=== PATIENT | male | born 1980 | race Caucasian/White ===

== ENCOUNTER 2018-03-22 06:15 | Day surgery (SDC) | payer OTHER ==
[2018-03-22] MEDS ORDERED: Sodium Chloride 0.9% 1,000 ML IV SCH (07:00)
[2018-03-22] MEDS ORDERED: fentaNYL 100 MCG/2 ML SDV ONE (07:34)
[2018-03-22] MEDS ORDERED: Propofol 200 MG/20 ML SDV ONE (07:34)
[2018-03-22] MEDS ORDERED: Midazolam 1 MG/ML 2 ML SDV ONE (07:34)
--- NOTE | 2018-03-23 08:41 | OR ---
DATE OF PROCEDURE: 03/22/2018 PROCEDURES: 1. Esophagogastroduodenoscopy. 2. Barragan pH monitor placement. COMPLICATIONS: None. PROCESS EQUIPMENT OPERATOR: None. FINDINGS: 1. Mild inflammation of the distal antrum, but not extending into the duodenum. 2. Hiatal hernia, moderate. 3. Barragan pH placement. RISKS: Risks, benefits, alternatives, and limitations including, but not limited to infection, bleeding, and perforation explained to the patient, who wished to proceed. PREOPERATIVE DIAGNOSIS: Epigastric pain. POSTOPERATIVE DIAGNOSIS: Epigastric pain. PROCEDURE IN DETAIL: The patient was placed in left lateral decubitus position. The EGD scope was introduced and advanced atraumatically into the second part of duodenum. No duodenal ulcers. Duodenum did not show any abnormalities. In the gastric antrum, there was mild inflammation consistent with gastritis. This was biopsied using cold biopsy forceps. On retroflex, the patient was noted to have a hiatal hernia. Within the stomach itself, there was no evidence of ulceration and no abnormality. GE junction showed inflammation consistent with reflux disease. The GE junction was then measured. The remainder of the esophagus was normal. The Barragan pH Monitor was then introduced as the scope was removed. This was placed 6 cm from the GE junction. This was performed in a standard technique by applying suction, waiting 30 seconds, deploying the device, releasing the suction, and removing the carrier. The scope was then reintroduced to inspect the area and the device was found to be clipped and packed without abnormality. The patient tolerated the procedure well. Alfredo Sin MD /[id number]
== END 2018-03-22 09:55 | disposition home or self-care (01) ==
LOC: JP.SDS 06:15
PROVIDERS: ATTEND Surgery
DX: K29.50 Unspecified chronic gastritis without bleeding (principal); K44.9 Diaphragmatic hernia without obstruction or gangrene
CPT/HCPCS: 43239; J2250; J2704; J3010; J7030; 88305

== ENCOUNTER 2018-03-24 16:05 | Observation (INO) | payer OTHER ==
--- NOTE | 2018-03-24 16:55 | EDM.PDOC ---
ED HPI GENERAL MEDICAL PROBLEM - General Chief Complaint: General Stated Complaint: CAME FROM CLINIC Time Seen by Provider: 03/24/18 16:56 Source of Information: Reports: Patient, Family History Limitations: Reports: No Limitations - History of Present Illness INITIAL COMMENTS - FREE TEXT/NARRATIVE: pt arrived with marked vertigo and feeling like he is going to fall. At times he doesn,t seem to coomprhend what is being said to him. He has had headaches but does not have a severe headache at this ttime. Onset: Other ( started last nite. ) Duration: Hour(s): Location: Reports: Head, Generalized Associated Symptoms: Reports: Confusion, Headaches, Other (nausea but no vomiting. ) - Related Data Allergies Allergy/AdvReac Type Severity Reaction Status Date / Time No Known Allergies Allergy Verified 03/22/18 07:05 Home Meds: Home Meds Fluticasone Propionate [Flonase] 2 spray NS DAILY 03/18/18 [History] Niacin 250 mg PO DAILY 03/18/18 [History] Aspirin [Halfprin] 81 mg PO DAILY 03/22/18 [History] Past Medical History Gastrointestinal History: Reports: Hemorrhoids, Other (See Below) Other Gastrointestinal History: calvo procedure on 03/22/18 Musculoskeletal History: Reports: Other (See Below) Other Musculoskeletal History: factial fx - Infectious Disease History Infectious Disease History: Reports: Chicken Pox - Past Surgical History HEENT Surgical History: Reports: Adenoidectomy, Tonsillectomy GI Surgical History: Reports: Appendectomy, Colonoscopy Social & Family History - Family History Family Medical History: Noncontributory - Tobacco Use Smoking Status *Q: Never Smoker - Caffeine Use Caffeine Use: Reports: Soda - Recreational Drug Use Recreational Drug Use: No ED ROS GENERAL - Review of Systems Review Of Systems: See Below Constitutional: Reports: Other (nausea) HEENT: Reports: Vertigo Respiratory: Reports: No Symptoms Cardiovascular: Reports: No Symptoms Endocrine: Reports: No Symptoms GI/Abdominal: Reports: Nausea : Reports: No Symptoms Musculoskeletal: Reports: No Symptoms Skin: Reports: No Symptoms Neurological: Reports: Confusion, Other (vertigo) Psychiatric: Reports: No Symptoms ED EXAM, GENERAL - Physical Exam Exam: See Below Free Text/Narrative:: pt arrived with a history of vertigo starting last nit. He is feeling very vague at times and not comprehending directions. He does not have a headache. Exam Limited By: No Limitations General Appearance: Alert, Moderate Distress, Other (pupils are equal and reactive. ) Ears: Normal TMs, Other (no nuchal rigidity. ) Throat/Mouth: Normal Inspection Head: Atraumatic Neck: Normal Inspection Respiratory/Chest: No Respiratory Distress Cardiovascular: Regular Rate, Rhythm GI/Abdominal: Soft, Non-Tender (Male) Exam: Deferred Rectal (Males) Exam: Deferred Back Exam: Normal Inspection Extremities: Normal Inspection Neurological: Alert, Oriented, Normal Cognition, Other (pt is somewhat vague looking at times. ) Course - Vital Signs Last Recorded V/S: Last Vital Signs Temp 35.4 C 03/24/18 16:17 Pulse 74 03/24/18 16:17 Resp 16 03/24/18 16:17 BP 132/85 03/24/18 16:17 Pulse Ox 96 03/24/18 16:17 - Orders/Labs/Meds Orders: Active Orders 24 hr Category Date Time Status Orthostatic Vital Signs [RC] ASDIRECTED Care 03/24/18 16:46 Active Chest 1V Frontal [CR] Stat Exams 03/24/18 17:44 Ordered Head wo Cont [CT] Stat Exams 03/24/18 16:58 Taken Sodium Chloride 0.9% [Normal Saline] 1,000 ml Med 03/24/18 18:00 Active IV ASDIRECTED Medication Orders Sodium Chloride (Normal Saline) 1,000 mls @ 300 mls/hr IV ASDIRECTED PREMA Last Admin: 03/24/18 18:01 Dose: 300 mls/hr Labs: Laboratory Tests 03/24/18 03/24/18 03/24/18 Range/Units 16:16 16:16 16:16 WBC 7.7 (4.5-11.0) K/uL RBC 4.61 (4.30-5.90) M/uL Hgb 14.3 (12.0-15.0) g/dL Hct 40.5 (40.0-54.0) % MCV 88 (80-98) fL MCH 31 (27-31) pg MCHC 35 (32-36) % Plt Count 270 (150-400) K/uL Neut % (Auto) 44 (36-66) % Lymph % (Auto) 42 (24-44) % [place] % (Auto) 7 H (2-6) % Eos % (Auto) 6 H (2-4) % Baso % (Auto) 1 (0-1) % Sodium 140 (140-148) mmol/L Potassium 3.8 (3.6-5.2) mmol/L Chloride 103 (100-108) mmol/L Carbon Dioxide 28 (21-32) mmol/L Anion Gap 12.8 (5.0-14.0) mmol/L BUN 17 (7-18) mg/dL Creatinine 1.4 H (0.8-1.3) mg/dL Est Cr Clr Drug Dosing 76.94 mL/min Estimated GFR (MDRD) 57 L (>60) Glucose 128 H (74-106) mg/dL Calcium 7.8 L (8.5-10.1) mg/dL Total Bilirubin 0.4 (0.2-1.0) mg/dL AST 18 (15-37) U/L ALT 33 (12-78) U/L Alkaline Phosphatase 61 (46-116) U/L C-Reactive Protein 0.10 (0.0-0.3) mg/dL Total Protein 7.3 (6.4-8.2) g/dL Albumin 3.7 (3.4-5.0) g/dL Globulin 3.6 H (2.3-3.5) g/dL Albumin/Globulin Ratio 1.0 L (1.2-2.2) Urine Color Urine Appearance Urine pH (4.5-8.0) Ur Specific [place] (1.008-1.030) Urine Protein (NEGATIVE) mg/dL Urine Glucose (UA) (NEGATIVE) mg/dL Urine Ketones (NEGATIVE) mg/dL Urine Occult Blood (NEGATIVE) Urine Nitrite (NEGAITVE) Urine Bilirubin (NEGATIVE) Urine Urobilinogen (NORMAL) mg/dL Ur Leukocyte Esterase (NEGATIVE) Urine RBC (0-5) Urine WBC (0-5) Ur Epithelial Cells Amorphous Sediment Urine Bacteria Urine Mucus 03/24/18 Range/Units 17:14 WBC (4.5-11.0) K/uL RBC (4.30-5.90) M/uL Hgb (12.0-15.0) g/dL Hct (40.0-54.0) % MCV (80-98) fL MCH (27-31) pg MCHC (32-36) % Plt Count (150-400) K/uL Neut % (Auto) (36-66) % Lymph % (Auto) (24-44) % [place] % (Auto) (2-6) % Eos % (Auto) (2-4) % Baso % (Auto) (0-1) % Sodium (140-148) mmol/L Potassium (3.6-5.2) mmol/L Chloride (100-108) mmol/L Carbon Dioxide (21-32) mmol/L Anion Gap (5.0-14.0) mmol/L BUN (7-18) mg/dL Creatinine (0.8-1.3) mg/dL Est Cr Clr Drug Dosing mL/min Estimated GFR (MDRD) (>60) Glucose (74-106) mg/dL Calcium (8.5-10.1) mg/dL Total Bilirubin (0.2-1.0) mg/dL AST (15-37) U/L ALT (12-78) U/L Alkaline Phosphatase (46-116) U/L C-Reactive Protein (0.0-0.3) mg/dL Total Protein (6.4-8.2) g/dL Albumin (3.4-5.0) g/dL Globulin (2.3-3.5) g/dL Albumin/Globulin Ratio (1.2-2.2) Urine Color Yellow Urine Appearance Clear Urine pH 7.0 (4.5-8.0) Ur Specific [place] 1.015 (1.008-1.030) Urine Protein Negative (NEGATIVE) mg/dL Urine Glucose (UA) Normal (NEGATIVE) mg/dL Urine Ketones Negative (NEGATIVE) mg/dL Urine Occult Blood Negative (NEGATIVE) Urine Nitrite Negative (NEGAITVE) Urine Bilirubin Negative (NEGATIVE) Urine Urobilinogen Normal (NORMAL) mg/dL Ur Leukocyte Esterase Negative (NEGATIVE) Urine RBC Not seen (0-5) Urine WBC Not seen (0-5) Ur Epithelial Cells Not seen Amorphous Sediment Not seen Urine Bacteria Rare Urine Mucus Not seen Meds: Medications Generic Name Dose Route Start Last Admin Trade Name Freq PRN Reason Stop Dose Admin Sodium Chloride 1,000 mls @ 300 mls/hr 03/24/18 18:00 03/24/18 18:01 Normal Saline IV 300 mls/hr ASDIRECTED PREMA Administration Discontinued Medications Generic Name Dose Route Start Last Admin Trade Name Red PRN Reason Stop Dose Admin Meclizine HCl 25 mg 03/24/18 17:46 03/24/18 18:01 Antivert PO 03/24/18 17:47 25 mg ONETIME ONE Administration Ondansetron HCl 4 mg 03/24/18 17:45 03/24/18 18:04 Zofran IVPUSH 03/24/18 17:46 4 mg ONETIME ONE Administration - Re-Assessments/Exams Free Text/Narrative Re-Assessment/Exam: 03/24/18 18:16 lab work was found to be normal. His cat scan of the head was normal. Departure - Departure Time of Disposition: 18:17 Disposition: Admitted As Inpatient 66 Condition: Fair Clinical Impression: Vertigo, Confusion - Discharge Information Referrals: Angus Roa, PHYSICAL DAMAGE APPRAISER [Primary Care Provider] - Forms: ED Department Discharge Care Plan Goals: admit to [facility] - My Orders Last 24 Hours: My Active Orders 03/24/18 16:46 Orthostatic Vital Signs [RC] ASDIRECTED 03/24/18 16:58 Head wo Cont [CT] Stat 03/24/18 17:44 Chest 1V Frontal [CR] Stat 03/24/18 18:00 Sodium Chloride 0.9% [Normal Saline] 1,000 ml IV ASDIRECTED - Assessment/Plan Last 24 Hours: My Active Orders 03/24/18 16:46 Orthostatic Vital Signs [RC] ASDIRECTED 03/24/18 16:58 Head wo Cont [CT] Stat 03/24/18 17:44 Chest 1V Frontal [CR] Stat 03/24/18 18:00 Sodium Chloride 0.9% [Normal Saline] 1,000 ml IV ASDIRECTED
[2018-03-24] MEDS ORDERED: Ondansetron 4 MG/2 ML SDV IVPUSH ONE (17:45)
[2018-03-24] MEDS ORDERED: Meclizine 25 MG Tab PO ONE (17:46)
[2018-03-24] MEDS ORDERED: Sodium Chloride 0.9% 1,000 ML IV SCH (18:00)
--- NOTE | 2018-03-24 20:07 | PCM.HP ---
H&P History of Present Illness - General Date of Service: 03/24/18 Admit Problem/Dx: Admission Diagnosis/Problem Admission Diagnosis/Problem Vertigo Source of Information: Patient, Family () History Limitations: Reports: No Limitations - History of Present Illness Initial Comments - Free Text/Narative: Angus reports he had a Calvo procedure for epigastric and GERD problems, surgery under general anesthesia on Wednesday, he was discharged to home. Wednesday he had a normal day but in the evening became mildly lightheaded which progressed into . 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 He became acutely dizzy, almost fell off ladder. His Boss brought him to his for evaluation. His is a nurse retail chain store area supervisor who was at her office at [facility]. His noted Angus was confused, not knowing who she was or names children. She brought Angus to emergency room for further evaluation. Onset of Symptoms: Reports: Sudden Duration of Symptoms: Reports: Day(s): Location: Reports: Generalized Severity: Severe Improves with: Reports: None Worsens with: Reports: None Associated Symptoms: Reports: Confusion, Headaches (Frontal), Nausea/Vomiting, Syncope (Near syncope) - Related Data Allergies/Adverse Reactions: Allergies Allergy/AdvReac Type Severity Reaction Status Date / Time No Known Allergies Allergy Verified 03/22/18 07:05 Home Medications: Home Meds Fluticasone Propionate [Flonase] 2 spray NS DAILY 03/18/18 [History] Niacin 250 mg PO DAILY 03/18/18 [History] Aspirin [Halfprin] 81 mg PO DAILY 03/22/18 [History] Past Medical History Gastrointestinal History: Reports: Hemorrhoids, Other (See Below) Other Gastrointestinal History: calvo procedure on 03/22/18 Musculoskeletal History: Reports: Other (See Below) Other Musculoskeletal History: factial fx - Infectious Disease History Infectious Disease History: Reports: Chicken Pox - Past Surgical History HEENT Surgical History: Reports: Adenoidectomy, Tonsillectomy GI Surgical History: Reports: Appendectomy, Colonoscopy Social & Family History - Family History Family Medical History: Noncontributory - Tobacco Use Smoking Status *Q: Never Smoker - Caffeine Use Caffeine Use: Reports: Soda - Recreational Drug Use Recreational Drug Use: No - Living Situation & Occupation Living situation: Reports: Occupation: Employed (With Emma and 3 children. 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.) H&P Review of Systems - Review of Systems: Review Of Systems: See Below (All) General: Reports: Fatigue HEENT: Reports: Headaches Pulmonary: Reports: No Symptoms Cardiovascular: Reports: No Symptoms Gastrointestinal: Reports: Nausea Genitourinary: Reports: No Symptoms Musculoskeletal: Reports: No Symptoms Skin: Reports: No Symptoms Psychiatric: Reports: No Symptoms Neurological: Reports: Confusion, Dizziness, Headache, Syncope (near), Difficulty Walking Hematologic/Lymphatic: Reports: No Symptoms Immunologic: Reports: Seasonal Allergy Exam - Exam Exam: See Below - Vital Signs Vital Signs: Last Vital Signs Temp 35.4 C 03/24/18 16: Pulse 74 03/24/18 16:17 Resp 16 03/24/18 16:17 BP 132/85 03/24/18 16:17 Pulse Ox 96 03/24/18 16:17 Orthostatic Blood Pressure [ 128/95 Standing] Orthostatic Blood Pressure [ 146/97 Sitting] Orthostatic Blood Pressure [ 131/88 Supine] Weight: 90.718 kg - Exam General: Alert, Oriented, Cooperative HEENT: PERRLA, Hearing Intact, Mucosa Moist & [place], Nares Patent, Normal Nasal Septum, Posterior Pharynx Clear, Conjunctiva Clear, EOMI, EACs Clear, TMs Clear Neck: Supple, Trachea Midline, 2 Lungs: Clear to Auscultation, Normal Respiratory Effort Cardiovascular: Regular Rate, Regular Rhythm, Normal S1 GI/Abdominal Exam: Normal Bowel Sounds, Soft, Non-Tender, No Organomegaly, No Distention, No Abnormal Bruit, No Mass, Pelvis Stable (Male) Exam: Deferred Rectal (Males) Exam: Deferred Back Exam: Normal Inspection, Full Range of Motion Extremities: Normal Inspection, Normal Range of Motion, Non-Tender, No Pedal Edema, Normal Capillary Refill Peripheral Pulses: 2+: Radial (L), Radial (R) Skin: Warm, Dry, Intact Neurological: Cranial Nerves Intact, Reflexes Equal Bilateral, Strength Equal Bilateral, Normal Speech, Normal Tone, Sensation Intact Neuro Extensive - Mental Status: Alert, Oriented x3, Normal Mood/Affect, Normal Cognition, Memory Intact Psychiatric: Alert, Normal Affect, Normal Mood - Patient Data Lab Results Last 24 hrs: Laboratory Results - last 24 hr 03/24/18 03/24/18 03/24/18 Range/Units 16:16 16:16 16:16 WBC 7.7 (4.5-11.0) K/uL RBC 4.61 (4.30-5.90) M/uL Hgb 14.3 (12.0-15.0) g/dL Hct 40.5 (40.0-54.0) % MCV 88 (80-98) fL MCH 31 (27-31) pg MCHC 35 (32-36) % Plt Count 270 (150-400) K/uL Neut % (Auto) 44 (36-66) % Lymph % (Auto) 42 (24-44) % [place] % (Auto) 7 H (2-6) % Eos % (Auto) 6 H (2-4) % Baso % (Auto) 1 (0-1) % Sodium 140 (140-148) mmol/L Potassium 3.8 (3.6-5.2) mmol/L Chloride 103 (100-108) mmol/L Carbon Dioxide 28 (21-32) mmol/L Anion Gap 12.8 (5.0-14.0) mmol/L BUN 17 (7-18) mg/dL Creatinine 1.4 H (0.8-1.3) mg/dL Est Cr Clr Drug Dosing 76.94 mL/min Estimated GFR (MDRD) 57 L (>60) Glucose 128 H (74-106) mg/dL Calcium 7.8 L (8.5-10.1) mg/dL Total Bilirubin 0.4 (0.2-1.0) mg/dL AST 18 (15-37) U/L ALT 33 (12-78) U/L Alkaline Phosphatase 61 (46-116) U/L C-Reactive Protein 0.10 (0.0-0.3) mg/dL Total Protein 7.3 (6.4-8.2) g/dL Albumin 3.7 (3.4-5.0) g/dL Globulin 3.6 H (2.3-3.5) g/dL Albumin/Globulin Ratio 1.0 L (1.2-2.2) Urine Color Urine Appearance Urine pH (4.5-8.0) Ur Specific [place] (1.008-1.030) Urine Protein (NEGATIVE) mg/dL Urine Glucose (UA) (NEGATIVE) mg/dL Urine Ketones (NEGATIVE) mg/dL Urine Occult Blood (NEGATIVE) Urine Nitrite (NEGAITVE) Urine Bilirubin (NEGATIVE) Urine Urobilinogen (NORMAL) mg/dL Ur Leukocyte Esterase (NEGATIVE) Urine RBC (0-5) Urine WBC (0-5) Ur Epithelial Cells Amorphous Sediment Urine Bacteria Urine Mucus Urine Opiates Screen (NEGATIVE) Ur Oxycodone Screen (NEGATIVE) Urine Methadone Screen (NEGATIVE) Ur Propoxyphene Screen (NEGATIVE) Ur Barbiturates Screen (NEGATIVE) Ur Tricyclics Screen (NEGATIVE) Ur Phencyclidine Scrn (NEGATIVE) Ur Amphetamine Screen (NEGATIVE) U Methamphetamines Scrn (NEGATIVE) Urine MDMA Screen (NEGATIVE) U Benzodiazepines Scrn (NEGATIVE) U Cocaine Metab Screen (NEGATIVE) U Marijuana (THC) Screen (NEGATIVE) 03/24/18 03/24/18 Range/Units 17:14 18:33 WBC (4.5-11.0) K/uL RBC (4.30-5.90) M/uL Hgb (12.0-15.0) g/dL Hct (40.0-54.0) % MCV (80-98) fL MCH (27-31) pg MCHC (32-36) % Plt Count (150-400) K/uL Neut % (Auto) (36-66) % Lymph % (Auto) (24-44) % [place] % (Auto) (2-6) % Eos % (Auto) (2-4) % Baso % (Auto) (0-1) % Sodium (140-148) mmol/L Potassium (3.6-5.2) mmol/L Chloride (100-108) mmol/L Carbon Dioxide (21-32) mmol/L Anion Gap (5.0-14.0) mmol/L BUN (7-18) mg/dL Creatinine (0.8-1.3) mg/dL Est Cr Clr Drug Dosing mL/min Estimated GFR (MDRD) (>60) Glucose (74-106) mg/dL Calcium (8.5-10.1) mg/dL Total Bilirubin (0.2-1.0) mg/dL AST (15-37) U/L ALT (12-78) U/L Alkaline Phosphatase (46-116) U/L C-Reactive Protein (0.0-0.3) mg/dL Total Protein (6.4-8.2) g/dL Albumin (3.4-5.0) g/dL Globulin (2.3-3.5) g/dL Albumin/Globulin Ratio (1.2-2.2) Urine Color Yellow Urine Appearance Clear Urine pH 7.0 (4.5-8.0) Ur Specific [place] 1.015 (1.008-1.030) Urine Protein Negative (NEGATIVE) mg/dL Urine Glucose (UA) Normal (NEGATIVE) mg/dL Urine Ketones Negative (NEGATIVE) mg/dL Urine Occult Blood Negative (NEGATIVE) Urine Nitrite Negative (NEGAITVE) Urine Bilirubin Negative (NEGATIVE) Urine Urobilinogen Normal (NORMAL) mg/dL Ur Leukocyte Esterase Negative (NEGATIVE) Urine RBC Not seen (0-5) Urine WBC Not seen (0-5) Ur Epithelial Cells Not seen Amorphous Sediment Not seen Urine Bacteria Rare Urine Mucus Not seen Urine Opiates Screen Negative (NEGATIVE) Ur Oxycodone Screen Negative (NEGATIVE) Urine Methadone Screen Negative (NEGATIVE) Ur Propoxyphene Screen Negative (NEGATIVE) Ur Barbiturates Screen Negative (NEGATIVE) Ur Tricyclics Screen Negative (NEGATIVE) Ur Phencyclidine Scrn Negative (NEGATIVE) Ur Amphetamine Screen Negative (NEGATIVE) U Methamphetamines Scrn Negative (NEGATIVE) Urine MDMA Screen Negative (NEGATIVE) U Benzodiazepines Scrn Negative (NEGATIVE) U Cocaine Metab Screen Negative (NEGATIVE) U Marijuana (THC) Screen Negative (NEGATIVE) Result Diagrams: 03/24/18 16:16 03/24/18 16:16 - Problem List (1) Confusion SNOMED Code(s): 160916702 ICD Code: R41.0 - DISORIENTATION, UNSPECIFIED Status: Acute Priority: High Current Visit: Yes (2) Vertigo SNOMED Code(s): 069947370 ICD Code: R42 - DIZZINESS AND GIDDINESS Status: Acute Priority: High Current Visit: Yes Problem List Initiated/Reviewed/Updated: Yes Orders Last 24hrs: Active Orders 24 hr Category Date Time Status Patient Status Manage Transfer [TRANSFER] Routine ADT 03/24/18 19:32 Ordered Orthostatic Vital Signs [RC] ASDIRECTED Care 03/24/18 16:46 Active Chest 1V Frontal [CR] Stat Exams 03/24/18 17:44 Taken Head wo Cont [CT] Stat Exams 03/24/18 16:58 Taken Sodium Chloride 0.9% [Normal Saline] 1,000 ml Med 03/24/18 18:00 Active IV ASDIRECTED Resuscitation Status Routine Resus Stat 03/24/18 19:32 Ordered Medication Orders Sodium Chloride (Normal Saline) 1,000 mls @ 300 mls/hr IV ASDIRECTED [facility] Last Admin: 03/24/18 18:01 Dose: 300 mls/hr Assessment/Plan Comment:: Assessment and plan Angus reports he had a Calvo procedure for epigastric and GERD problems, surgery under general anesthesia on Wednesday, he was discharged to home. Wednesday he had a normal day but in the evening became mildly lightheaded which progressed into . 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 He became acutely dizzy, almost fell off ladder. His Boss brought him to his for evaluation. His is a nurse retail chain store area supervisor who was at her office at [facility]. His noted Angus was confused, not knowing who she was or names children. She brought Angus to emergency room for further evaluation. Emergency room Head CT without contrast which was negative for any acute process , hemoglobin 14 3 hematocrit 40.5 platelets 270 WBC normal, chemistries sodium 140, potassium 3.8 chloride 103, 12.8, 17, creatinine 1.4, glucose, calcium 7.8 , urine normal, urine drug screen negative. Given IV fluids and anti-emetics which improved his symptoms. He is feeling much better. Due to the onset of neurological symptoms patient will admitted observation for further monitoring. Vertigo -Admit to [address] [place] [address] for further monitoring -IV Fluids for rehydration LR at 125 mL per hour -Anti-emetics -Neuro checks every 2 hours while awake -Advise to notify nurses of any chest pain or other symptoms -Repeat head CT with contrast 6am -And a.m. labs: CBC, CMP Maintenance issues -Orders home meds: ordered -Nutrition: regular diet -Noland catheter not indicated at this time -DVT: Contraindicated -PPI: IV Protonix 40mg daily CODE STATUS: FULL CODE Admission status: Admit to Observation -I expect this patient to stay less than 24 hours, not to exceed 96 hours for evaluation and management of this problem. Disposition: home with family Primary care provider:Angus Roa NP Hospitalist: Dr. Duke
[2018-03-24] MEDS ORDERED: Temazepam 15 MG Cap PO PRN (20:18)
[2018-03-24] MEDS ORDERED: Acetaminophen 325 MG Tab PO PRN (20:18)
[2018-03-24] MEDS ORDERED: Ondansetron 4 MG Tab.DIS PO PRN (20:18)
[2018-03-24] MEDS ORDERED: LORazepam 2 MG/ML SDV IV PRN (20:18)
[2018-03-24] MEDS ORDERED: Docusate Sodium 100 MG Cap PO PRN (20:18)
[2018-03-24] MEDS ORDERED: Pantoprazole 40 MG Vial IVPUSH SCH (20:18)
[2018-03-24] MEDS ORDERED: oxyCODONE 5 MG Tab PO PRN (20:18)
[2018-03-24] MEDS ORDERED: Albuterol 0.083% 2.5 MG/3 ML Neb Soln NEB PRN (20:18)
[2018-03-24] MEDS ORDERED: Morphine 2 MG/ML Syringe IVPUSH PRN (20:18)
[2018-03-24] MEDS: Lactated Ringers 1,000 ML IV SCH (21:16)
[2018-03-25] MEDS: Lactated Ringers 1,000 ML IV SCH (05:21)
[2018-03-25] MEDS ORDERED: Iopamidol 612 MG/ML 100 ML Bottle IV PRN (07:10)
[2018-03-25] MEDS: Fluticasone Propionate Nasal Spray 16 GM Bottle NAS SCH (08:02)
--- NOTE | 2018-03-25 08:44 | CR ---
CHEST: Portable CLINICAL HISTORY:GERD COMPARISON:None FINDINGS: Lung delgado are clear. Heart and pulmonary vascularity are normal.. Small radiopacity in t he mid mediastinum is likely an esophageal monitor device. Impression: No acute cardio pelvic process
[2018-03-25] MEDS: Aspirin 81 MG Tab.EC PO SCH (08:59)
[2018-03-25] MEDS: Pantoprazole 40 MG Tab.CR PO SCH ×2 (08:59→17:23)
[2018-03-25] MEDS ORDERED: Pantoprazole 40 MG Vial IVPUSH SCH (09:00)
--- NOTE | 2018-03-25 17:05 | PCM.PN ---
- General Info Date of Service: 03/25/18 Subjective Update: Mr. Russell is a 37-year-old gentleman who was admitted through the emergency department last night with severe vertigo, nausea vomiting, and confusion. He had an outpatient procedure done here 2 days prior to admission, he felt well the first day but on the day of admission developed symptoms of severe vertigo which seemed to be positional in nature associated with nausea vomiting as well as confusion and memory impairment. He was admitted and has received IV fluids, symptoms were significantly improved in the morning and have almost totally resolved now this afternoon. CT scan without contrast was obtained on admission and was unremarkable followed by CT scan with contrast this morning also felt to be unremarkable. He's never had similar symptoms in the past. Functional Status: Reports: Tolerating Diet, Ambulating, Urinating - Review of Systems General: Denies: Fever, Weakness, Chills Pulmonary: Reports: No Symptoms Cardiovascular: Reports: No Symptoms Gastrointestinal: Reports: No Symptoms Neurological: Reports: Confusion, Dizziness, Other (Vertigo). Denies: Headache , Numbness, Paresthesia, Pre-Existing Deficit, Seizure, Tremors - Patient Data Vitals - Most Recent: Last Vital Signs Temp 96.6 F 03/25/18 13:48 Pulse 100 03/25/18 13:48 Resp 16 03/25/18 13:48 BP 134/85 03/25/18 13:48 Pulse Ox 97 03/25/18 13:48 Orthostatic Blood Pressure [ 128/95 Standing] Orthostatic Blood Pressure [ 146/97 Sitting] Orthostatic Blood Pressure [ 131/88 Supine] Weight - Most Recent: 196 lb 6.416 oz I&O - Last 24 Hours: Intake & Output 03/25/18 03/25/18 03/25/18 06:59 14:59 22:59 Intake Total 1350 1580 Output Total 600 Balance 750 1580 Lab Results Last 24 Hours: Laboratory Results - last 24 hr 03/24/18 03/24/18 03/25/18 Range/Units 17:14 18:33 05:11 WBC 6.0 (4.5-11.0) K/uL RBC 4.49 (4.30-5.90) M/uL Hgb 13.8 (12.0-15.0) g/dL Hct 39.5 L (40.0-54.0) % MCV 88 (80-98) fL MCH 31 (27-31) pg MCHC 35 (32-36) % Plt Count 252 (150-400) K/uL Neut % (Auto) 42 (36-66) % Lymph % (Auto) 43 (24-44) % Amador % (Auto) 8 H (2-6) % Eos % (Auto) 7 H (2-4) % Baso % (Auto) 1 (0-1) % Sodium (140-148) mmol/L Potassium (3.6-5.2) mmol/L Chloride (100-108) mmol/L Carbon Dioxide (21-32) mmol/L Anion Gap (5.0-14.0) mmol/L BUN (7-18) mg/dL Creatinine (0.8-1.3) mg/dL Est Cr Clr Drug Dosing mL/min Estimated GFR (MDRD) (>60) Glucose (74-106) mg/dL Calcium (8.5-10.1) mg/dL Magnesium (1.8-2.4) mg/dL Total Bilirubin (0.2-1.0) mg/dL AST (15-37) U/L ALT (12-78) U/L Alkaline Phosphatase (46-116) U/L Total Protein (6.4-8.2) g/dL Albumin (3.4-5.0) g/dL Globulin (2.3-3.5) g/dL Albumin/Globulin Ratio (1.2-2.2) Urine Color Yellow Urine Appearance Clear Urine pH 7.0 (4.5-8.0) Ur Specific [place] 1.015 (1.008-1.030) Urine Protein Negative (NEGATIVE) mg/dL Urine Glucose (UA) Normal (NEGATIVE) mg/dL Urine Ketones Negative (NEGATIVE) mg/dL Urine Occult Blood Negative (NEGATIVE) Urine Nitrite Negative (NEGAITVE) Urine Bilirubin Negative (NEGATIVE) Urine Urobilinogen Normal (NORMAL) mg/dL Ur Leukocyte Esterase Negative (NEGATIVE) Urine RBC Not seen (0-5) Urine WBC Not seen (0-5) Ur Epithelial Cells Not seen Amorphous Sediment Not seen Urine Bacteria Rare Urine Mucus Not seen Urine Opiates Screen Negative (NEGATIVE) Ur Oxycodone Screen Negative (NEGATIVE) Urine Methadone Screen Negative (NEGATIVE) Ur Propoxyphene Screen Negative (NEGATIVE) Ur Barbiturates Screen Negative (NEGATIVE) Ur Tricyclics Screen Negative (NEGATIVE) Ur Phencyclidine Scrn Negative (NEGATIVE) Ur Amphetamine Screen Negative (NEGATIVE) U Methamphetamines Scrn Negative (NEGATIVE) Urine MDMA Screen Negative (NEGATIVE) U Benzodiazepines Scrn Negative (NEGATIVE) U Cocaine Metab Screen Negative (NEGATIVE) U Marijuana (THC) Screen Negative (NEGATIVE) 03/25/18 Range/Units 05:20 WBC (4.5-11.0) K/uL RBC (4.30-5.90) M/uL Hgb (12.0-15.0) g/dL Hct (40.0-54.0) % MCV (80-98) fL MCH (27-31) pg MCHC (32-36) % Plt Count (150-400) K/uL Neut % (Auto) (36-66) % Lymph % (Auto) (24-44) % Amador % (Auto) (2-6) % Eos % (Auto) (2-4) % Baso % (Auto) (0-1) % Sodium 142 (140-148) mmol/L Potassium 4.0 (3.6-5.2) mmol/L Chloride 107 (100-108) mmol/L Carbon Dioxide 26 (21-32) mmol/L Anion Gap 9.1 (5.0-14.0) mmol/L BUN 12 (7-18) mg/dL Creatinine 1.1 (0.8-1.3) mg/dL Est Cr Clr Drug Dosing 97.93 mL/min Estimated GFR (MDRD) > 60 (>60) Glucose 114 H (74-106) mg/dL Calcium 7.6 L (8.5-10.1) mg/dL Magnesium 1.8 (1.8-2.4) mg/dL Total Bilirubin 0.4 (0.2-1.0) mg/dL AST 16 (15-37) U/L ALT 29 (12-78) U/L Alkaline Phosphatase 52 (46-116) U/L Total Protein 6.5 (6.4-8.2) g/dL Albumin 3.3 L (3.4-5.0) g/dL Globulin 3.2 (2.3-3.5) g/dL Albumin/Globulin Ratio 1.0 L (1.2-2.2) Urine Color Urine Appearance Urine pH (4.5-8.0) Ur Specific [place] (1.008-1.030) Urine Protein (NEGATIVE) mg/dL Urine Glucose (UA) (NEGATIVE) mg/dL Urine Ketones (NEGATIVE) mg/dL Urine Occult Blood (NEGATIVE) Urine Nitrite (NEGAITVE) Urine Bilirubin (NEGATIVE) Urine Urobilinogen (NORMAL) mg/dL Ur Leukocyte Esterase (NEGATIVE) Urine RBC (0-5) Urine WBC (0-5) Ur Epithelial Cells Amorphous Sediment Urine Bacteria Urine Mucus Urine Opiates Screen (NEGATIVE) Ur Oxycodone Screen (NEGATIVE) Urine Methadone Screen (NEGATIVE) Ur Propoxyphene Screen (NEGATIVE) Ur Barbiturates Screen (NEGATIVE) Ur Tricyclics Screen (NEGATIVE) Ur Phencyclidine Scrn (NEGATIVE) Ur Amphetamine Screen (NEGATIVE) U Methamphetamines Scrn (NEGATIVE) Urine MDMA Screen (NEGATIVE) U Benzodiazepines Scrn (NEGATIVE) U Cocaine Metab Screen (NEGATIVE) U Marijuana (THC) Screen (NEGATIVE) Med Orders - Current: Current Medications Acetaminophen (Tylenol) 650 mg PO Q4H PRN PRN Reason: Pain (Mild 1-3)/fever Albuterol (Proventil Neb Soln) 2.5 mg NEB Q4H PRN PRN Reason: Shortness Of Breath/wheezing Aspirin (Halfprin) 81 mg PO DAILY [facility] Last Admin: 03/25/18 08:59 Dose: 81 mg Docusate Sodium (Colace) 100 mg PO BID PRN PRN Reason: Constipation Fluticasone Propionate (Flonase) 0 gm KEN DAILY [facility] Last Admin: 03/25/18 08:02 Dose: Not Given Ondansetron HCl (Zofran Odt) 4 mg PO Q6H PRN PRN Reason: Nausea able to take PO Oxycodone HCl (Oxycodone) 5 mg PO Q4H PRN PRN Reason: Pain (moderate 4-6) Pantoprazole Sodium (Protonix) 40 mg PO BIDAC [facility] Last Admin: 03/25/18 08:59 Dose: 40 mg Temazepam (Restoril) 15 mg PO BEDTIME PRN PRN Reason: Sleep Discontinued Medications Sodium Chloride (Normal Saline) 1,000 mls @ 300 mls/hr IV ASDIRECTED [facility] Last Admin: 03/24/18 18:01 Dose: 300 mls/hr Lactated Ringer's (Ringers, Lactated) 1,000 mls @ 125 mls/hr IV ASDIRECTED [facility] Last Admin: 03/25/18 05:21 Dose: 125 mls/hr Iopamidol (Isovue-300 (61%)) 100 ml IV . DIRECTED PRN PRN Reason: RADIOLOGY EXAM Stop: 03/26/18 07:11 Last Admin: 03/25/18 07:29 Dose: 100 ml Lorazepam (Ativan) 1 mg IV Q6H PRN PRN Reason: Nausea/Vomiting Meclizine HCl (Antivert) 25 mg PO ONETIME ONE Stop: 03/24/18 17:47 Last Admin: 03/24/18 18:01 Dose: 25 mg Morphine Sulfate (Morphine) 2 mg IVPUSH Q2H PRN PRN Reason: Pain (severe 7-10) Ondansetron HCl (Zofran) 4 mg IVPUSH ONETIME ONE Stop: 03/24/18 17:46 Last Admin: 03/24/18 18:04 Dose: 4 mg Pantoprazole Sodium (Protonix Iv) 40 mg IVPUSH Q12H [facility] Last Admin: 03/24/18 21:09 Dose: 40 mg Pantoprazole Sodium (Protonix Iv) 40 mg IVPUSH Q12H [facility] - Exam General: Alert, Oriented, Cooperative, No Acute Distress HEENT: Pupils Equal, Pupils Reactive, Other (Hallpike maneuvers were found to be positive on the right) Lungs: Clear to Auscultation, Normal Respiratory Effort Cardiovascular: Regular Rate, Regular Rhythm, No Murmurs GI/Abdominal Exam: Soft, Non-Tender, No Organomegaly, No Distention Neurological: No New Focal Deficit - Problem List Review Problem List Initiated/Reviewed/Updated: Yes - My Orders Last 24 Hours: My Active Orders 03/25/18 11:48 Consult to Occupational Therapy [OT Evaluation and Treatment] [CONS] Routine 03/25/18 16:57 Discontinue Telemetry Monitoring [Cardiac Monitoring Discontinue] [RC] Click to Edit 03/25/18 16:58 Convert IV to Saline Lock [OM.PC] Routine 03/26/18 05:00 Chest 1V Frontal [CR] Timed 03/26/18 Breakfast NPO After Midnight [Nothing per Oral After Midnight Diet] [DIET] - Plan Plan:: Assessment and plan Benign positional Vertigo-associated with symptoms of confusion, nausea and vomiting, and significant confusion with memory impairment.. Significantly improved this morning and symptoms have almost totally resolved this afternoon. CT scan obtained with and without contrast shows no significant abnormalities. -Saline lock IV -Anti-emetics -Neuro checks every 2 hours while awake Maintenance issues -Orders home meds: ordered -Nutrition: regular diet -Noland catheter not indicated at this time -DVT: Contraindicated -PPI: IV Protonix 40mg daily CODE STATUS: FULL CODE Admission status: Admit to Observation -I expect this patient to stay less than 24 hours, not to exceed 96 hours for evaluation and management of this problem. Disposition: home with family Primary care provider:Angus Roa NP Hospitalist: Dr. Duke
[2018-03-26] MEDS: Pantoprazole 40 MG Tab.CR PO SCH (07:52)
[2018-03-26] MEDS: Aspirin 81 MG Tab.EC PO SCH (08:35)
[2018-03-26] MEDS: Fluticasone Propionate Nasal Spray 16 GM Bottle NAS SCH (08:47)
[2018-03-26] MEDS ORDERED: fentaNYL 100 MCG/2 ML SDV ONE (11:48)
[2018-03-26] MEDS ORDERED: Propofol 200 MG/20 ML SDV ONE (11:48)
--- NOTE | 2018-03-26 14:13 | PCM.DCSUM1 ---
Discharge Summary - Hospital Course Brief History: Mr. Russell is a 37-year-old gentleman who is admitted through the emergency department for further evaluation and management of weakness, confusion, and vertigo. - Discharge Data Discharge Date: 03/26/18 Discharge Disposition: Home, Self-Care 01 Condition: Good - Discharge Diagnosis/Problem(s) (1) BPV (benign positional vertigo) SNOMED Code(s): 089285867 ICD Code: H81.10 - BENIGN PAROXYSMAL VERTIGO, UNSPECIFIED EAR Status: Acute Current Visit: Yes (2) Confusion SNOMED Code(s): 726808579 ICD Code: R41.0 - DISORIENTATION, UNSPECIFIED Status: Acute Priority: High Current Visit: Yes - Patient Summary/Data Consults: Consultations 03/25/18 11:48 Consult to Occupational Therapy [OT Evaluation and Treatment] [CONS] Routine Please Evaluate and Treat. OT Reason for Consult: Vertigo This query below is only for informational purposes and is not editable. Admission Diagnosis/Problem: Vertigo Hospital Course: Mr. Russell is a 37-year-old gentleman who is admitted through the emergency department with relatively abrupt onset of confusion, weakness, and vertigo. [place] reports he had a Barragan procedure for epigastric and GERD problems on Wednesday, March 22, he was discharged to home. Wednesday he had a normal day but in the evening became mildly lightheaded which progressed into . On the day of admission reports that he did not feel quite well in the morning but did go to work. While he is at work noted progressive onset of more severe symptoms of vertigo especially with change in head position. Symptoms became very severe to the point where he had difficulty standing or walking. Also during this time began to experience some confusion and memory impairment. He was initially brought to the clinic for further evaluation but then transferred to the emergency department. In the emergency department was noted to be confused and forgetful with symptoms of significant vertigo and nausea. CT scan of the head was obtained without contrast and showed no acute abnormalities. Laboratory studies were obtained and showed no acute or significant abnormalities. He was admitted to the hospital and given IV fluids for hydration. By the next day had had good improvement in his confusion, but not totally resolved and almost total resolution of his vertigo. Hallpike maneuvers were performed and found to be positive on the right. He was seen and evaluated by occupational therapy because of vertigo. Later in the day his symptoms had totally resolved with no further confusion or vertigo. He was monitored overnight to assure total resolution of symptoms. In the next morning was feeling well. Situation was reviewed with neurology, they did recommend follow-up MRI early part of next week to make sure there are no obvious neurologic abnormalities not seen on CT scan of the head. He was seen by Dr. Sin prior to discharge EGD was performed for removal of the probable device from the esophagus. This will allow us to proceed with the MRI early next week. Activity will be as tolerated and he will resume his usual diet. Follow-up will be scheduled with his primary care provider midweek. - Patient Instructions Diet: Usual Diet as Tolerated Activity: As Tolerated Other/Special Instructions: MRI of the brain with and with out contrast for further evaluation of vertigo and confusion, on Wednesday, March 29, 2018. Please schedule follow-up appointment with primary care provider within one week. - Discharge Plan *PRESCRIPTION DRUG MONITORING PROGRAM REVIEWED*: Not Applicable *COPY OF PRESCRIPTION DRUG MONITORING REPORT IN PATIENT YANNI: Not Applicable Home Medications: Home Meds Fluticasone Propionate [Flonase] 2 spray NS DAILY 03/18/18 [History] Niacin 250 mg PO DAILY 03/18/18 [History] Aspirin [Halfprin] 81 mg PO DAILY 03/22/18 [History] Referrals: Angus Roa NP [Primary Care Provider] - 03/30/18 2:20 pm - Discharge Summary/Plan Comment DC Time >30 min.: No - Patient Data Vitals - Most Recent: Last Vital Signs Temp 96.4 F 03/26/18 07:54 Pulse 81 03/26/18 07:54 Resp 16 03/26/18 07:54 BP 110/89 03/26/18 07:54 Pulse Ox 97 03/26/18 07:54 Orthostatic Blood Pressure [ 128/95 Standing] Orthostatic Blood Pressure [ 146/97 Sitting] Orthostatic Blood Pressure [ 131/88 Supine] Weight - Most Recent: 196 lb 6.416 oz Med Orders - Current: Current Medications Acetaminophen (Tylenol) 650 mg PO Q4H PRN PRN Reason: Pain (Mild 1-3)/fever Last Admin: 03/25/18 21:38 Dose: 650 mg Albuterol (Proventil Neb Soln) 2.5 mg NEB Q4H PRN PRN Reason: Shortness Of Breath/wheezing Aspirin (Halfprin) 81 mg PO DAILY [facility] Last Admin: 03/26/18 08:35 Dose: 81 mg Docusate Sodium (Colace) 100 mg PO BID PRN PRN Reason: Constipation Last Admin: 03/26/18 08:35 Dose: 100 mg Fluticasone Propionate (Flonase) 0 gm KEN DAILY [facility] Last Admin: 03/26/18 08:47 Dose: Not Given Ondansetron HCl (Zofran Odt) 4 mg PO Q6H PRN PRN Reason: Nausea able to take PO Oxycodone HCl (Oxycodone) 5 mg PO Q4H PRN PRN Reason: Pain (moderate 4-6) Pantoprazole Sodium (Protonix) 40 mg PO BIDAC [facility] Last Admin: 03/26/18 07:52 Dose: 40 mg Temazepam (Restoril) 15 mg PO BEDTIME PRN PRN Reason: Sleep Last Admin: 03/25/18 21:38 Dose: 15 mg Discontinued Medications Fentanyl (Sublimaze) Confirm Administered Dose 100 mcg .ROUTE .STK-MED ONE Stop: 03/26/18 11:49 Sodium Chloride (Normal Saline) 1,000 mls @ 300 mls/hr IV ASDIRECTED [facility] Last Admin: 03/24/18 18:01 Dose: 300 mls/hr Lactated Ringer's (Ringers, Lactated) 1,000 mls @ 125 mls/hr IV ASDIRECTED [facility] Last Admin: 03/25/18 05:21 Dose: 125 mls/hr Iopamidol (Isovue-300 (61%)) 100 ml IV . DIRECTED PRN PRN Reason: RADIOLOGY EXAM Stop: 03/26/18 07:11 Last Admin: 03/25/18 07:29 Dose: 100 ml Lorazepam (Ativan) 1 mg IV Q6H PRN PRN Reason: Nausea/Vomiting Meclizine HCl (Antivert) 25 mg PO ONETIME ONE Stop: 03/24/18 17:47 Last Admin: 03/24/18 18:01 Dose: 25 mg Morphine Sulfate (Morphine) 2 mg IVPUSH Q2H PRN PRN Reason: Pain (severe 7-10) Ondansetron HCl (Zofran) 4 mg IVPUSH ONETIME ONE Stop: 03/24/18 17:46 Last Admin: 03/24/18 18:04 Dose: 4 mg Pantoprazole Sodium (Protonix Iv) 40 mg IVPUSH Q12H [facility] Last Admin: 03/24/18 21:09 Dose: 40 mg Pantoprazole Sodium (Protonix Iv) 40 mg IVPUSH Q12H [facility] Propofol (Diprivan 20 Ml) Confirm Administered Dose 200 mg .ROUTE .STK-MED ONE Stop: 03/26/18 11:49 - Exam General: Reports: Alert, Oriented, Cooperative, No Acute Distress Lungs: Reports: Clear to Auscultation, Normal Respiratory Effort Cardiovascular: Reports: Regular Rate, Regular Rhythm, No Murmurs GI/Abdominal Exam: Soft, Non-Tender, No Organomegaly, No Distention
[2018-03-26] MEDS ORDERED: Lactated Ringers 1,000 ML ONE (14:57)
--- NOTE | 2018-03-28 08:15 | OR ---
DATE OF PROCEDURE: 03/26/2018 PROCEDURE: 1. EGD. 2. Removal of Barragan pH wireless monitor. COMPLICATIONS: None. KILN PACKER: None. ANESTHESIA: MAC. INDICATIONS: This is a pleasant 37-year-old male who several days ago had a Barragan wireless pH monitor placed. This functioned very well, and the patient did very well. Unfortunately, the patient was hospitalized due to unrelated circumstances. Part of this hospitalization evaluation will require the patient to have an MRI. Therefore, the pH monitor will be required to be removed. We discussed risks, benefits, alternatives, limitations of this plan including the rarity of this event, my experience with this, the risks including infection, bleeding, esophageal perforation, septic shock, fistula formation, and other risks not listed here. The patient understands these risks and wished to proceed. PROCEDURE IN DETAIL: The patient was placed in the left lateral decubitus position. The EGD scope was introduced and advanced. The tip was identified at 6 cm from the GE junction, still clipped into place. Endoscopic scissors were attempted to cut the tissue. Unfortunately, this was unable to be removed this way. Therefore, a loop was able to be passed around it and gentle electrocautery was used to separate the tissue from the device. This device was then grabbed, placed into the stomach. This was then grabbed with a net and then pulled back antegrade without any difficulty. The EGD scope was then introduced. A very minimal thermal injury was noted. No specific bleeding or abnormality noted at the removal site. Of note, there was no gastritis or any abnormality in the EGD portion of this exam. Alfredo Sin MD /[id number]
--- NOTE | 2018-03-28 11:34 | CR ---
CHEST: AP upright CLINICAL HISTORY:PH monitor position COMPARISON:03/24/2018 FINDINGS: The heart size, pulmonary vascular and hilar structures are normal. No infiltrate effusion or pneumothorax is seen. There is an esophageal monitor in the mid mediastinum IMPRESSION: No acute cardiopulmonary process. Esophageal monitor as above
== END 2018-03-26 17:36 | disposition home or self-care (01) ==
LOC: JP.ED 16:05 → JP.MS 19:32 → JP.ED 19:54
PROVIDERS: ADMIT Hospitalist; ATTEND Hospitalist
DX: H81.10 Benign paroxysmal vertigo, unspecified ear (principal); K21.9 Gastro-esophageal reflux disease without esophagitis; Z79.82 Long term (current) use of aspirin; Z79.899 Other long term (current) drug therapy
CPT/HCPCS: 36415; 43247; 70450; 70460; 71045; 80053; 80305; 81001; 83735; 85025; 86140; 96361; 96374; 97165; 97530; 99285; A9270; C9113; J2405; J2704; J3010; J7030; J7120; Q9967; 96375; G0378